=== PATIENT | female | born 1970 | race Caucasian/White ===

== ENCOUNTER 2017-02-22 04:36 | Emergency (ER) | payer OTHER ==
[~2017-02-22 04:36] MED LIST: EXCETAB40 PO; PARO20TA2 PO
[2017-02-22 04:44] VITALS: BP 144/82; PULSE 76; RESP 18; TEMP 98.3; O2SAT 99
--- NOTE | 2017-02-22 05:03 | PD ---
HPI Chief Complaint: abdominal pain Time Seen by Provider: 04:39 Travel History International Travel<30 days: No Contact w/Intl Traveler<30days: No Traveled to known affect area: No History of Present Illness HPI The patient was seen and examined in the presence of the nurse. This patient has had intermittent spells of abdominal pain for the last 5 days. Has had some nausea and vomiting. Denies fever. She went to [facility] but was transferred here for ultrasound. Patient arrives pain-free and feels well. Symptom severity is mild. No exacerbating factors. Rare alcohol drinker. Only abdominal surgery was [employer] related. Pain was alleviated by medication given at the other ER [facility] Past Medical History Diminished Hearing: No Immunizations Current: Yes Past Surgical History Tonsillectomy: Yes Social History Alcohol Use: No Tobacco Use: No Substance Use: No Allergies-Medications (Allergen,Severity, Reaction): Coded Allergies: No Known Allergies (Unverified Adverse Reaction, Unknown, 02/22/17) Reported Meds & Prescriptions Reported Meds & Active Scripts Active Zofran (Ondansetron HCl) 4 Mg Tab 4 Mg PO Q6HR PRN Tramadol (Tramadol HCl) 50 Mg Tab 50 Mg PO Q6H PRN Paroxetine (Paroxetine HCl) 20 Mg Tab 20 Mg PO HS Review of Systems General / Constitutional: No: Fever Eyes: No: Visual changes HENT: No: Headaches Cardiovascular: No: Chest Pain or Discomfort Respiratory: No: Shortness of Breath Gastrointestinal: Positive: Nausea, Vomiting, Abdominal Pain Genitourinary: No: Dysuria Musculoskeletal: No: Pain Skin: No Rash Neurologic: No: Weakness Psychiatric: No: Depression Endocrine: No: Polydipsia Hematologic/Lymphatic: No: Easy Bruising Physical Exam Narrative GENERAL: Well-nourished, well-developed patient in no apparent distress. SKIN: Focused skin assessment reveals no rash and nodules. Skin is Warm and dry. HEAD: Atraumatic. Normocephalic. EYES: Pupils equal and round. No scleral icterus. No injection or drainage. ENT: No nasal bleeding or discharge. Mucous membranes pink and moist. NECK: Trachea midline. No JVD. CARDIOVASCULAR: Regular rate and rhythm. No murmur appreciated. RESPIRATORY: No accessory muscle use. Clear to auscultation. Breath sounds equal bilaterally. GASTROINTESTINAL: Abdomen soft, non-tender, nondistended. Hepatic and splenic margins not palpable. MUSCULOSKELETAL: No obvious deformities. No clubbing. No cyanosis. No edema. NEUROLOGICAL: Awake and alert. No obvious cranial nerve deficits. Motor grossly within normal limits. Normal speech. PSYCHIATRIC: Appropriate mood and affect; insight and judgment normal. Data Data Last Documented VS Vital Signs Date Time Temp Pulse Resp B/P (MAP) Pulse Ox O2 Delivery O2 Flow Rate FiO2 02/22/17 04:44 98.3 76 18 144/82 (102) [address] Abd/Pel W Iv Contrast(Rout) (02/22/17 ) Iohexol 350 Inj (Omnipaque 350 Inj) (02/22/17 05:14) [facility] Medical Decision Making Medical Screen Exam Complete: Yes Emergency Medical Condition: Yes Medical Record Reviewed: Yes Differential Diagnosis Differential diagnosis includes pancreatitis, biliary colic, hepatitis, GERD, peptic ulcer disease. Narrative Course I have reviewed the patient's electronic medical record. Reviewed her [place] [facility] visit and lab studies This point patient has no pain and normal vital signs and a soft benign nontender abdomen. The location of her pain when present was epigastric. She had minimal leukocytosis and minimal elevation of lipase We discussed the differential diagnoses. I've ordered CT of abdomen and pelvis with IV contrast. This will give me a better idea of what is going on in the abdomen rather than limiting her to a ultrasound of the gallbladder. I reviewed the results with her. We discussed incidental findings but there is nothing emergent. Her gallbladder is normal. She was given empirically try some mass of blocking medication and avoid gastric irritants. She is going to call her primary physician Saturday for follow-up. I wrote her some tramadol and Zofran to use if needed. May have minor ileus as noted by radiologist. She will limit her pain medication. Clear liquids and advance as able. This is clearly nonsurgical. Diagnosis Primary Impression: Epigastric pain Additional Instructions: The patient was advised to follow up with their physician and return if they worsen. The patient was warned about potential sedation for the medications they will receive on prescription. I have recommended clear liquids for 24 hours, then gradually advance as tolerated. Med/Other Pt SpecificInfo: Prescription(s) given Scripts Ondansetron (Zofran) 4 Mg Tab 4 MG PO Q6HR Y for NAUSEA OR VOMITING, #14 TAB 0 Refills Prov: Rashel Cartwright MD 02/22/17 Tramadol (Tramadol) 50 Mg Tab 50 MG PO Q6H Y for PAIN, #20 TAB 0 Refills Prov: Rashel Cartwright MD 02/22/17 Disposition: 01 DISCHARGE HOME Condition: Stable Rashel Cartwright MD Feb 22, 2017 05:03
[2017-02-22] MEDS ORDERED: IOHEXOL 350 MG/ML 10 ML VIAL (for RAD DIAG) IVCONTRAST ONE (05:14)
--- NOTE | 2017-02-22 05:38 | RADRPT ---
EXAM DATE/TIME: 02/22/2017 05:12 [place] COMPARISON: ABDOMEN KUB ONLY, February 22, 2017, 2:27. INDICATIONS : Abdominal pain. IV CONTRAST: 100 cc Omnipaque 350 (iohexol) IV ORAL CONTRAST: No oral contrast ingested. RADIATION DOSE: 4.75 CTDIvol (mGy) MEDICAL HISTORY : None SURGICAL HISTORY : None. ENCOUNTER: Initial ACUITY: 1 day PAIN SCALE: 8/10 LOCATION: abdomen TECHNIQUE: Volumetric scanning of the abdomen and pelvis was performed. Using automated exposure control and ad justment of the mA and/or kV according to patient size, radiation dose was kept as low as reasonably achievable to obtain optimal diagnostic quality images. DICOM format image data is available electro nically for review and comparison. FINDINGS: LOWER LUNGS: The visualized lower lungs are clear. LIVER: Homogeneous density with a low attenuation 2 x 1.3 cm lesion adjacent to the falciform ligament. Ther e is no dilation of the biliary tree. No calcified gallstones. SPLEEN: Normal size without lesion. PANCREAS: Within normal limits. KIDNEYS: Normal in size and shape. There is no mass or hydronephrosis. There is a 6 mm nonobstructing left re nal calculus. ADRENAL GLANDS: Within normal limits. VASCULAR: There is no aortic aneurysm. BOWEL/MESENTERY: No oral contrast was given limiting sensitivity. There are multiple loops of nondilated air-containin g small bowel with multiple small air-fluid levels. There is no free intraperitoneal air or fluid. ABDOMINAL WALL: Within normal limits. RETROPERITONEUM: There is no lymphadenopathy. BLADDER: No wall thickening or mass. REPRODUCTIVE: Within normal limits. INGUINAL: There is no lymphadenopathy or hernia. MUSCULOSKELETAL: Within normal limits for patient age. CONCLUSION: 1. No oral contrast was given limiting the sensitivity of the exam. There is a mildly nonspecific, no nobstructive bowel gas pattern which may represent a mild ileus. 2. Nonobstructing left renal calculus. 3. Mild hepatic steatosis. There is a low attenuation lesion adjacent to the falciform ligament which is nonspecific. This measures up to approximately 2 x 1.3 cm. This may represent a cavernous hemangi mohan. 4. Normal appendix. 5. Unremarkable gallbladder. Rex Clark MD on February 22, 2017 at 5:33 Board Certified Radiologist. This report was verified electronically.
[2017-02-22] MEDS ORDERED: TRAM50TA PO (05:46)
[2017-02-22] MEDS ORDERED: ZOFR4TAB PO (05:46)
== END 2017-02-22 06:49 | disposition home or self-care (01) ==
LOC: NEPE 04:36
DX: R10.13 Epigastric pain (principal); R11.2 Nausea with vomiting, unspecified; D72.829 Elevated white blood cell count, unspecified; N20.0 Calculus of kidney; K76.0 Fatty (change of) liver, not elsewhere classified; Z79.899 Other long term (current) drug therapy
CPT/HCPCS: 74000; 74177; 80053; 81001; 83690; 84702; 85025; 96361; 96374; 96375; 99281; 99285; J1885; J2765; J7030; Q9967